=== PATIENT | female | born 1950 | race Asian ===

== ENCOUNTER 2019-09-10 19:51 | Outpatient (CLI) | payer MEDICARE, BC | END 2019-09-10 19:52 | disposition short-term general hospital (02) | LOC: EMS 19:51 | PROVIDERS: ATTEND Surgery | DX: S01.21XA Laceration without foreign body of nose, initial encounter (principal); S01.411A Laceration without foreign body of right cheek and temporomandibular area, initial encounter; W01.118A Fall on same level from slipping, tripping and stumbling with subsequent striking against other sharp object, initial encounter; Y92.009 Unspecified place in unspecified non-institutional (private) residence as the place of occurrence of the external cause | CPT/HCPCS: A0425; A0429 ==

== ENCOUNTER 2020-07-29 08:59 | Outpatient (CLI) | payer MEDICARE, BC ==
[2020-07-29 15:49] LABS: ALBUMIN 4.2 g/dL (3.2-5.5); ALBUMIN/GLOBULIN RATIO 1.2 (1.0-2.2); ALKALINE PHOSPHATASE 64 IU/L (42-121); ALT ALANINE AMINOTRANSFERASE 24 IU/L (10-60); AST ASPARTATE AMINOTRANSFERASE 16 IU/L (10-42); BILIRUBIN,TOTAL 0.8 mg/dL (0.2-1.0); BUN - BLOOD UREA NITROGEN 16 mg/dL (6-20); CALCIUM 9.4 mg/dL (8.5-10.3); CARBON DIOXIDE - CO2 26 mmol/L (21-32); CHLORIDE 99 mmol/L (101-111); CHOL/HDL RATIO 2.5 (<4.4); CHOLESTEROL 280 mg/dL; CREATININE 0.8 mg/dL (0.4-1.0); GLUCOSE 115 mg/dL (70-100); HDL CHOLESTEROL 111 mg/dL; LDL CHOLESTEROL,CALCULATED 145 mg/dL; LDL/HDL RATIO 1.3 (<4.4); SODIUM 134 mmol/L (135-145); TOTAL PROTEIN 7.8 g/dL (6.7-8.2); VLDL CHOLESTEROL 24 mg/dL
== END 2020-07-29 09:00 | disposition home or self-care (01) ==
LOC: LAB.S 08:59
PROVIDERS: ATTEND Family Medicine
DX: I10 Essential (primary) hypertension (principal); E78.2 Mixed hyperlipidemia
CPT/HCPCS: 36415; 80053; 80061; 83721

== ENCOUNTER 2022-08-25 08:00 | Outpatient (CLI) | payer MEDICARE, BC | END 2022-08-25 23:59 | disposition home or self-care (01) | LOC: LAB.S 08:00 | PROVIDERS: ATTEND Physician Assistant | DX: R30.0 Dysuria (principal) | CPT/HCPCS: 87077; 87086; 87181 ==

== ENCOUNTER 2023-02-01 11:03 | Outpatient (CLI) | payer MEDICARE, BC ==
--- NOTE | 2023-02-01 16:41 | XRAY Report ---
PROCEDURE: Cervical Spine 2 View INDICATIONS: NECK PAIN,PAIN OF RIGHT SHOULDER JOINT TECHNIQUE: 4 view(s) of the cervical spine were acquired. COMPARISON: None. FINDINGS: Bones: No fractures or dislocations to the C7 level. The lateral masses of C1 appear intact on the odontoid view. No suspicious bony lesions. Soft tissues: No prevertebral soft tissue swelling. IMPRESSION: No acute fracture. No osseous lesion. If symptoms and/or clinical suspicion for patholog y continue, further assessment with repeat plain films, or advanced imaging (e.g., CT, MRI, or bone s can) is recommended for further assessment. Reviewed by: Anastasiya Arenas MD on 02/01/2023 4:39 PM PDT Approved by: Anastasiya Arenas MD on 02/01/2023 4:39 PM PDT Station ID: [id number]
--- NOTE | 2023-02-01 16:41 | XRAY Report ---
PROCEDURE: Thoracic Spine 2 View INDICATIONS: PAIN OF NECK,RT SHOULDER, RT ANKLE JOINT TECHNIQUE: 2 views of the thoracic spine were acquired. COMPARISON: None. FINDINGS: Bones: No fractures or dislocations. No suspicious bony lesions. Visualized ribs are intact. Multil evel disc space narrowing and endplate osteophyte formation. Soft tissues: No paravertebral stripe thickening. IMPRESSION: Multilevel degenerative disc disease. No acute fracture. No osseous lesion. If symptoms and/or clinic al suspicion for pathology continue, further assessment with repeat plain films, or advanced imaging (e.g., CT, MRI, or bone scan) is recommended for further assessment. Reviewed by: Anastasiya Arenas MD on 02/01/2023 4:39 PM PDT Approved by: Anastasiya Arenas MD on 02/01/2023 4:39 PM PDT Station ID: [id number]
--- NOTE | 2023-02-01 16:41 | XRAY Report ---
PROCEDURE: Shoulder 3 View RT INDICATIONS: NECK PAIN,R SHOULDER PAIN,R ANKLE PAIN TECHNIQUE: 3 views of the shoulder were acquired. COMPARISON: None. FINDINGS: Bones: No fractures or dislocations. No suspicious bony lesions. Visualized ribs appear intact. P eriarticular osteophyte formation at the acromioclavicular and glenohumeral joints. Soft tissues: Several small calcifications project over the rotator cuff. IMPRESSION: 1. Osteoarthritis. 2. Calcific tendinitis of the rotator cuff. 3. No acute fracture. No osseous lesion. If symptoms and/or clinical suspicion for pathology continue , further assessment with repeat plain films, or advanced imaging (e.g., CT, MRI, or bone scan) is re commended for further assessment. Reviewed by: Anastasiya Arenas MD on 02/01/2023 4:40 PM PDT Approved by: Anastasiya Arenas MD on 02/01/2023 4:40 PM PDT Station ID: [id number]
--- NOTE | 2023-02-01 16:42 | XRAY Report ---
PROCEDURE: Ankle 3 View RT INDICATIONS: RIGHT ANKLE PAIN TECHNIQUE: 3 views of the ankle were acquired. COMPARISON: None. FINDINGS: Bones: No fractures or dislocations. Ankle mortise is normally aligned. No suspicious bony lesions . Soft tissues: No tibiotalar joint effusion. Achilles tendon appears normal. IMPRESSION: No acute fracture. No osseous lesion. If symptoms and/or clinical suspicion for pathology continue, f urther assessment with repeat plain films, or advanced imaging (e.g., CT, MRI, or bone scan) is recom mended for further assessment. Reviewed by: Anastasiya Arenas MD on 02/01/2023 4:40 PM PDT Approved by: Anastasiya Arenas MD on 02/01/2023 4:40 PM PDT Station ID: [id number]
== END 2023-02-01 11:04 | disposition home or self-care (01) ==
LOC: DI.S 11:03
PROVIDERS: ATTEND Nurse Practitioner Family
DX: M54.2 Cervicalgia (principal); M25.571 Pain in right ankle and joints of right foot; M19.011 Primary osteoarthritis, right shoulder; M75.31 Calcific tendinitis of right shoulder; M51.34 Other intervertebral disc degeneration, thoracic region

== ENCOUNTER 2023-11-18 07:00 | Outpatient (CLI) | payer MEDICARE, BC ==
--- NOTE | 2023-11-19 13:07 | XRAY Report ---
PROCEDURE: Sacrum/Coccyx INDICATIONS: FALL WITH LOW BACK PAIN TECHNIQUE: 2 views of the sacrum and coccyx acquired. COMPARISON: None. FINDINGS: Bones: Osteoarthritic changes are noted throughout bony pelvis. No acute sacral or coccygeal fracture . There is prior left hip arthroplasty. No suspicious bony lesions. Soft tissues: Visualized bowel gas pattern is normal. No suspicious soft tissue densities. IMPRESSION: No sacral or coccygeal fracture. Degenerative disc disease in lower lumbar spine. Osteoarthritis thro ughout bony pelvis. Reviewed by: Walter Roper MD on 11/19/2023 1:05 PM PST Approved by: Walter Roper MD on 11/19/2023 1:05 PM PST Station ID: [id number]
--- NOTE | 2023-11-19 13:16 | XRAY Report ---
PROCEDURE: Lumbar Spine 2-3V INDICATIONS: FALL WITH LOW BACK PAIN TECHNIQUE: 3 views of the lumbar spine were acquired. COMPARISON: None. FINDINGS: Bones: 5 [id number] vertebrae are present. There is mild rightward curvature of lumbar spine w ith apex at L2 level. Degenerative endplate changes are noted throughout lumbar spine. No vertebral body compression fractures. No suspicious bony lesions. Soft tissues: Overlying bowel gas pattern is normal. No suspicious soft tissue calcifications. IMPRESSION: Degenerative disc disease throughout lumbar spine. No acute compression fracture or spondylolisthesis . Mild scoliosis as above. Reviewed by: Walter Roper MD on 11/19/2023 1:15 PM PST Approved by: Watler Roper MD on 11/19/2023 1:15 PM PST Station ID: [id number]
== END 2023-11-18 23:59 | disposition home or self-care (01) ==
LOC: DI.S 07:00
PROVIDERS: ATTEND Registered Nurse
DX: M51.36 Other intervertebral disc degeneration, lumbar region (principal); M19.09 Primary osteoarthritis, other specified site

== ENCOUNTER 2023-12-13 09:40 | Outpatient (CLI) | payer MEDICARE, BC ==
--- NOTE | 2023-12-13 11:31 | MRI Report ---
PROCEDURE: Lumbar Spine WO INDICATIONS: LUMBAR RADICULOPATHY TECHNIQUE: Noncontrast sagittal T1 spin echo and T2 fast echo, sagittal STIR, axial T1 and T2 fast spin echo thr ough the lumbar spine. In cases with scoliosis, additional coronal T2 fast spin echo may be performe d. COMPARISON: Lumbar spine x-ray 11/18/2023. FINDINGS: Image quality: Excellent. Alignment and Curvature: Mild dextrocurvature of the lumbar spine. Straightening of normal lumbar chris dosis. Bone Marrow: Modic type 2 degenerative endplate changes at L5-S1. Marrow is of normal overall signal . No acute vertebral body compression fractures. Spinal Cord: Conus medullaris terminates at the L1 level. Visualized cord demonstrates normal signa l and size. Paraspinous Soft Tissues: No paravertebral masses. T12-L1: Normal in appearance. L1-L2: Disc desiccation. Mild facet arthropathy. No central canal or neuroforaminal stenosis. L2-L3: Disc desiccation and height loss. Diffuse disc bulge with superimposed left central and par acentral disc extrusion extending superiorly. Facet arthropathy and thickening of ligamentum flavum. Moderate severe central canal stenosis. Severe narrowing of the left lateral recess with possible imp ingement of the descending left L2 nerve root. Moderate left and mild right neuroforaminal stenosis. L3-L4: Disc desiccation, height loss and a posterior disc bulge. Facet arthropathy and thickening o f ligamentum flavum. Moderate central canal stenosis. Mild bilateral neuroforaminal stenosis. L4-L5: Disc desiccation, height loss and a posterior disc bulge. Facet arthropathy and thickening o f ligamentum flavum. Moderate central canal stenosis. Moderate right and mild left neuroforaminal ra nosis. L5-S1: Disc desiccation and height loss. Mild left paracentral disc protrusion. Facet arthropathy. No central canal stenosis. Mild bilateral neuroforaminal stenosis. IMPRESSION: 1.Multilevel degenerative changes of the lumbar spine as described above. 2.There is moderate to severe central canal stenosis at L2-L3. Moderate central canal stenosis at L3- L4. 3.Severe narrowing of the left lateral recess at L2-L3 with possible impingement of the descending le ft L2 nerve root. 4.Moderate neuroforaminal stenosis on the left at L2-L3 and right at L4-L5. Mild multilevel neurofora trang stenosis as above. Reviewed by: Brett Sánchez MD on 12/13/2023 11:30 AM PST Approved by: Brett Sánchez MD on 12/13/2023 11:30 AM PST Station ID: [id number]
== END 2023-12-13 09:41 | disposition home or self-care (01) ==
LOC: DI 09:40
PROVIDERS: ATTEND Physical Medicine & Rehabilitation
DX: M51.36 Other intervertebral disc degeneration, lumbar region (principal); M48.061 Spinal stenosis, lumbar region without neurogenic claudication; M51.26 Other intervertebral disc displacement, lumbar region; M47.816 Spondylosis without myelopathy or radiculopathy, lumbar region; M51.37 Other intervertebral disc degeneration, lumbosacral region; M48.07 Spinal stenosis, lumbosacral region; M47.817 Spondylosis without myelopathy or radiculopathy, lumbosacral region; M51.27 Other intervertebral disc displacement, lumbosacral region

== ENCOUNTER 2023-12-24 09:16 | Outpatient (CLI) | payer MEDICARE, BC ==
--- NOTE | 2023-12-24 13:39 | DEXA Report ---
PROCEDURE: Dexa Spine and/or Hip INDICATIONS: POST MENOPAUSAL TECHNIQUE: Dual energy x-ray absorptiometry (DXA) was performed on a [employer] System. Regions measur ed are the AP Spine, femoral neck, and if needed forearm. COMPARISON: None FINDINGS: Lumbar Spine: Bone Mineral Density: 1.412 g/cm/cm,T score: 1.9. Right Femoral Neck: Bone Mineral Density: 0.971 g/cm/cm, T score: -0.5. Right Hip: Bone Mineral Density: 1.106 g/cm/cm,T score: 0.8. (T score greater or equal to -1.0: NORMAL) (T score from -1.1 to -2.4: OSTEOPENIA) (T score less than or equal to -2.5 to: OSTEOPOROSIS) Impression: By WHO criteria, this patient has normal bone mineral density. Patients with diagnosis of osteoporosis or osteopenia should have regular bone mineral density assess ment. For those eligible for Medicare, routine testing is allowed once every 2 years. Testing frequ ency can be increased for patients who have rapidly progressing disease or for those who are receivin g medical therapy to restore bone mass. Reviewed by: Silke Jimenez MD on 12/24/2023 1:38 PM PST Approved by: Silke Jimenez MD on 12/24/2023 1:38 PM PST Station ID: [id number]
--- NOTE | 2023-12-24 15:04 | CT Report ---
PROCEDURE: Lung Cancer Screen INDICATIONS: EX SMOKER TECHNIQUE: A CT scan of the chest was performed. Intravenous contrast media was not administered. Images were re corded and evaluated at appropriate window settings. Reformats: axial MIP of the chest, coronal and s agittal. For radiation dose reduction, the following was used: automated exposure control, adjustment of mA and/or kV according to patient size. COMPARISON: None. FINDINGS: Image quality: Excellent. Prior cancer history: Unsure. Lungs and pleura: No pleural effusions. No pneumothorax. Mild emphysematous change. Scattered ground glass opacity in the right lower lobe mostly the medial aspect. Mild dependent atelectasis. No consol idation. No mass. No significant pulmonary nodules. Mediastinum: Heart size is normal. Dense LAD and left circumflex coronary artery calcifications. No p ericardial effusion. No large vessel abnormality. No mediastinal adenopathy by size criteria. Chest wall and lower neck: Thyroid is unremarkable. No axillary or supraclavicular adenopathy by size . Bones: No aggressive osseous abnormality. Upper Abdomen: Unremarkable. IMPRESSION: Lung RAD: 1 - Negative. Recommendation: Continue annual screening in 12 Months with LDCT Non-Lung Significant Findings: Coronary Arterial Calcification - Moderate or Severe. Reviewed by: Dean Ya MD on 12/24/2023 3:02 PM PST Approved by: Dean Ya MD on 12/24/2023 3:02 PM PST Station ID: [id number]
== END 2023-12-24 09:17 | disposition home or self-care (01) ==
LOC: DI 09:16
PROVIDERS: ATTEND Nurse Practitioner Family
DX: Z12.2 Encounter for screening for malignant neoplasm of respiratory organs (principal); Z78.0 Asymptomatic menopausal state; Z87.891 Personal history of nicotine dependence; I25.10 Atherosclerotic heart disease of native coronary artery without angina pectoris; J43.9 Emphysema, unspecified